=== PATIENT | female | born 1965 | race Caucasian/White ===

== ENCOUNTER → 2016-08-18 | Outpatient (REF) | payer OTHER | LOC: M LAB REF 15:23 → EEVIPCON 15:23 | PROVIDERS: ATTEND Podiatrist | DX: L98.8 Other specified disorders of the skin and subcutaneous tissue (principal) ==

== ENCOUNTER → 2017-05-23 | Outpatient (REF) | payer BC, MEDICARE | LOC: M LAB REF 16:52 | DX: L03.039 Cellulitis of unspecified toe (principal) | CPT/HCPCS: 87077; 87186 ==

== ENCOUNTER → 2017-06-20 | Outpatient (REF) | payer BC, MEDICARE | LOC: M LAB REF 16:56 | DX: L03.031 Cellulitis of right toe (principal) | CPT/HCPCS: 87077; 87186 ==

== ENCOUNTER → 2017-07-31 | Outpatient (REF) | payer BC, MEDICARE | LOC: M LAB REF 13:53 | DX: L03.031 Cellulitis of right toe (principal) ==

== ENCOUNTER → 2017-09-19 | Outpatient (REF) | payer BC, MEDICARE | LOC: M LAB REF 15:26 | DX: L03.031 Cellulitis of right toe (principal) | CPT/HCPCS: 87186 ==

== ENCOUNTER 2018-02-16 06:03 | Day surgery (SDC) | payer MEDICARE, BC ==
[~2018-02-16] VITALS: Ht 165.1 cm; Wt 88.8 kg
[~2018-02-16 06:03] MED LIST: ALLE180T33 PO; BYDU2INJ7 SC; CRES10TA32 PO; FARX1TAB3 PO; FENO145T13 PO; INSUDET SC; INSUN SC; LIDOCAINE 1% MDV 20ML VIAL SQ PRN; METF500T13 PO; MINO100C4 PO; SILV1CRE60 TOP; VITA1TAB27 PO
[2018-02-16] MEDS ORDERED: MIDAZOLAM INJ 2 MG/2 ML VIAL (J2250) As Ordered ONE (06:57)
[2018-02-16] MEDS ORDERED: LIDOCAINE 2% INJ 100 MG/5 ML SDV (FOR ANES.) As Ordered ONE (06:57)
[2018-02-16] MEDS ORDERED: dexameTHASONE 4 MG/ML 1ML VIAL (J1100) As Ordered ONE ×2 (06:57→07:36)
[2018-02-16] MEDS ORDERED: ONDANSETRON 4MG/2ML VIAL (J2405) As Ordered ONE (06:57)
[2018-02-16] MEDS ORDERED: PROPOFOL 200 MG/20 ML VIAL As Ordered ONE (06:57)
[2018-02-16] MEDS ORDERED: fentaNYL 100 MCG/2 ML INJECTION (J3010) As Ordered ONE (06:57)
[2018-02-16] MEDS ORDERED: LR 1,000 ML IV ONE (07:00)
[2018-02-16] MEDS ORDERED: VANCOMYCIN HCL 1,000 MG, VIAL MATE ADAPTER 1 EACH in D5W 250 ML IV ONE (07:00)
[2018-02-16] MEDS ORDERED: ROPIvacaine 0.5% 30 ML INJECTION (J2795 PER 1MG) As Ordered ONE (07:15)
[2018-02-16] MEDS ORDERED: LIDOCAINE 2% MDV 20 ML VIAL As Ordered ONE (07:15)
[2018-02-16] MEDS ORDERED: BUPIVACAINE HCL 0.5% 30 ML VIAL As Ordered ONE (07:16)
[2018-02-16] MEDS ORDERED: BACITRACIN PWD 50,000 UNITS VIAL As Ordered ONE (07:16)
[2018-02-16] MEDS ORDERED: NEOSPORIN GU IRRIG 20 ML VIAL As Ordered ONE (07:16)
--- NOTE | 2018-02-16 09:01 | REP ---
Left foot series: Three views. History: Postop. Findings: Three views of the left foot are obtained through overlying dressing. There is mild midfoot osteoarthritis. Vascular calcification is observed. Plantar and Achilles calcaneal spurring is noted. No soft tissue gas, opaque foreign body, or bony destructive lesion is seen. Electronically Signed by Heriberto Philip MD 02/16/2018 08:52 A
--- NOTE | 2018-02-16 09:04 | RO ---
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 PROCEDURES PERFORMED: Distal interphalangeal joint arthroplasty second toe left foot. SURGEON: Dmitri Dover DPM [employer] PH[employer]Y TECHNICIAN: None. ANESTHESIA: Local monitored anesthesia care (MAC). IRRIGATION: Dilute bacitracin, neomycin and polymyxin B solution. HEMOSTASIS: Ankle pneumatic tourniquet at 250 mmHg for 3 minutes. HARDWARE UTILIZED: None. DESCRIPTION OF OPERATION: On 02/16/2018, this 53-year-old white female was taken from her hospital room to the operating room, placed on the operating room table in supine position. Following the induction of IV sedation, local and regional anesthesia, the left lower extremity was prepped and draped in the usual aseptic manner. Attention was directed to the patient's left foot where there was noted to be a mallet toe deformity. At this time, the following procedure was performed: DISTAL INTERPHALANGEAL JOINT ARTHROPLASTY SECOND TOE LEFT FOOT: Attention was directed to the patient's second toe. Two semi elliptical incisions were placed over the distal interphalangeal joint. The incision measured 2.5 cm x 5 mm. This skin wedge was excised. A transverse tenotomy and capsulotomy was performed at the level of the distal interphalangeal joint and the medial and collateral ligaments were sharply dissected free from the head of the middle phalanx. The extensor tendon was retracted in a proximal direction and utilizing a sagittal saw an osteotomy was performed midshaft of the middle phalanx and this was removed. The tourniquet was deflated. The wound was flushed with copious amounts of dilute bacitracin, neomycin and polymyxin B solution. Any remaining bleeders were electrocoagulated. Utilizing a #4-0 braided nylon loop suture, a four stranded core repair was performed of the extensor tendon. Skin was coapted and maintained utilizing #4-0 Prolene in a horizontal mattress type fashion. Following the completion of surgery, attention was directed towards bandaging where a sterile dressing was applied consisting of Adaptic, 4x4's, Sherie, Kerlix, and Coban. The patient apparently having tolerated the surgical procedure well was taken from the OR to the recovery room for further monitoring by the anesthesia department.
[2018-02-16 10:04] VITALS: BP 136/66
== END 2018-02-16 10:08 | disposition home or self-care (01) ==
LOC: M SDC 06:03
PROVIDERS: ATTEND Podiatrist
DX: M20.42 Other hammer toe(s) (acquired), left foot (principal); M79.672 Pain in left foot; L97.522 Non-pressure chronic ulcer of other part of left foot with fat layer exposed; E11.42 Type 2 diabetes mellitus with diabetic polyneuropathy; E11.621 Type 2 diabetes mellitus with foot ulcer; Z88.1 Allergy status to other antibiotic agents; Z79.4 Long term (current) use of insulin; Z79.84 Long term (current) use of oral hypoglycemic drugs; Z79.899 Other long term (current) drug therapy
CPT/HCPCS: 28285; 73630; 88300; J2250; J2405; J3010

== ENCOUNTER → 2019-02-12 | Outpatient (REF) | payer MEDICARE, BC ==
[~2019-02-12] MED LIST changes: +CRES10TA PO; -CRES10TA32 PO; -LIDOCAINE 1% MDV 20ML VIAL SQ PRN
== END ==
LOC: M LAB REF 15:25
PROVIDERS: ATTEND Podiatrist
DX: L03.039 Cellulitis of unspecified toe (principal); M79.671 Pain in right foot

== ENCOUNTER → 2019-04-09 | Outpatient (REF) | payer MEDICARE, BC ==
[~2019-04-09] MED LIST changes: -FENO145T13 PO; +FENO145T7 PO
== END ==
LOC: M LAB REF 15:45
PROVIDERS: ATTEND Podiatrist
DX: L03.031 Cellulitis of right toe (principal); M79.671 Pain in right foot

== ENCOUNTER → 2019-07-15 | Outpatient (REF) | payer MEDICARE, BC | LOC: M LAB REF 14:49 | PROVIDERS: ATTEND Podiatrist | DX: M79.671 Pain in right foot (principal) ==